=== PATIENT | female | born 1985 | race African-American/Black ===

== ENCOUNTER 2022-12-15 03:28 | Emergency (ER) | payer OTHER ==
[~2022-12-15] VITALS: Ht 172.7 cm; Wt 75.0 kg
[2022-12-15 03:32] VITALS: O2SAT 98
[2022-12-15 04:00] VITALS: TEMP 98.5
[2022-12-15] MEDS ORDERED: SODIUM CHLORIDE 0.9% 1,000 ML IV ONE (04:00)
[2022-12-15] MEDS ORDERED: MORPHINE SULFATE 4 MG/ML CPJ (NOT FOR IM USE) IV ONE (04:00)
[2022-12-15] MEDS ORDERED: ONDANSETRON HCL 4MG/2ML INJ IV ONE (04:00)
[2022-12-15 04:40] LABS: BASOPHILS % 0.9 % (0.0-2.0); EOSINOPHILS % 5.2 % (0.0-5.0); HEMOGLOBIN. 10.6 g/dL (12.0-16.0); LYMPHOCYTES % 38.4 % (20.0-50.0); MEAN CORPUSCULAR HEMOGLOBIN 24.5 pg (28.0-32.0); MEAN CORPUSCULAR VOLUME 74.4 fL (81.0-99.0); MEAN PLATELET VOLUME 9.2 fl (7.4-10.4); MONOCYTES % 6.8 % (2.0-8.0); NEUTROPHILS % 48.7 % (40.0-76.0); PLATELET 262 x1000/uL (130-400); RED CELL DISTRIBUTION WIDTH 15.4 % (11.6-14.6)
[2022-12-15 04:47] LABS: CHLORIDE 107 mEq/L (98-107)
[2022-12-15 04:57] LABS: B-HCG QUANTITATIVE 27 mIU/mL (<3)
[2022-12-15 05:45] LABS: CLARITY URINE CLEAR (CLEAR); COLOR URINE YELLOW (YELLOW); KETONES URINE NEGATIVE (NEGATIVE); LEUKOCYTE ESTERASE URINE TRACE (NEGATIVE); NITRITE URINE NEGATIVE (NEGATIVE); OCCULT BLOOD URINE NEGATIVE (NEGATIVE); PROTEIN URINE NEGATIVE (NEGATIVE); SPECIFIC GRAVITY URINE 1.024 (1.005-1.030)
[2022-12-15] MEDS ORDERED: DOXY100T2 MT (05:59)
[2022-12-15] MEDS ORDERED: IBUP-2028 MT (05:59)
[2022-12-15 06:12] VITALS: BP 128/63; PULSE 74; RESP 16
[2022-12-15] MEDS ORDERED: ONDANSETRON HCL 4MG/2ML INJ IV NR (06:15)
[2022-12-15] MEDS ORDERED: MORPHINE SULFATE 4 MG/ML CPJ (NOT FOR IM USE) IV NR (06:15)
== END 2022-12-15 06:12 | disposition home or self-care (01) ==
LOC: ER 03:48
DX: R10.31 Right lower quadrant pain (principal); Z87.59 Personal history of other complications of pregnancy, childbirth and the puerperium
CPT/HCPCS: 80053; 81003; 84702; 85025; 86850; 86900; 86901; 36415; 76830; 76856; 96360; 99284; J7030; Z7610 ×2; J2270; J2405